=== PATIENT | male | born 1980 | race Caucasian/White ===

== ENCOUNTER 2017-03-23 20:55 | Inpatient (IN) | payer OTHER ==
--- NOTE | 2017-03-23 21:24 | PDOC ---
History of Present Illness - General History Source: Patient Exam Limitations: No Limitations - History of Present Illness Initial Comments: 03/23/17 21:32 The patient is a 36 year old male with a significant PMH of DVT in right lower extremity and pulmonary embolism who presents to the emergency department with RLE pain beginning approximately last week. 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 The patient denies chest pain, shortness of breath, headache and dizziness. Denies fever, nausea, vomit, diarrhea and constipation. Denies dysuria, frequency, urgency and hematuria. Allergies: NKA Past surgical history: None Social history: Current everyday smoker. No reported alcohol or drug use. <Roger Alatorre - Last Filed: 03/23/17 21:32> - General History Source: Patient <Jack Ovalle - Last Filed: 03/23/17 22:32> - General Stated Complaint: PAIN Time Seen by Provider: 03/23/17 21:21 Past History <Roger Alatorre - Last Filed: 03/23/17 21:32> - Surgical History Orthopedic Surgery: Yes (Left elbow) - Psycho/Social/Smoking Cessation Hx Anxiety: No Suicidal Ideation: No Smoking History: Current every day smoker Have you smoked in the past 12 months: Yes Number of Cigarettes Smoked Daily: 20 Hx Alcohol Use: No Drug/Substance Use Hx: Yes Substance Use Type: Marijuana Hx Substance Use Treatment: Yes (IN 2011) <Jack Ovalle - Last Filed: 03/23/17 22:32> - Past Medical History Allergies/Adverse Reactions: Allergies Allergy/AdvReac Type Severity Reaction Status Date / Time No Known Allergies Allergy Verified 03/23/17 21:27 Home Medications: Ambulatory Orders Oxycodone Sr [Oxycontin] 10 mg PO DAILY 01/23/16 Enoxaparin [Lovenox -] 100 mg SQ BID #9 disp.syrin 01/25/16 Review of Systems - Review of Systems Comments:: 03/23/17 21:33 CONSTITUTIONAL: (+) Chills Absent: fever, diaphoresis, generalized weakness, malaise, loss of appetite HEENT: Absent: rhinorrhea, nasal congestion, throat pain, throat swelling, difficulty swallowing, mouth swelling, ear pain, eye pain, visual Changes CARDIOVASCULAR: Absent: chest pain, syncope, palpitations, irregular heart rate, lightheadedness , peripheral edema RESPIRATORY: Absent: cough, shortness of breath, dyspnea with exertion, orthopnea, wheezing, stridor, hemoptysis GASTROINTESTINAL: Absent: abdominal pain, abdominal distension, nausea, vomiting, diarrhea, constipation, melena, hematochezia GENITOURINARY: Absent: dysuria, frequency, urgency, hesitancy, hematuria, flank pain, genital pain MUSCULOSKELETAL: (+) Pain in left foot Absent: arthralgia, joint swelling SKIN: Absent: rash, itching, pallor HEMATOLOGIC/IMMUNOLOGIC: Absent: easy bleeding, easy bruising, lymphadenopathy, frequent infections ENDOCRINE: Absent: unexplained weight gain, unexplained weight loss, heat intolerance, cold intolerance NEUROLOGIC: Absent: headache, focal weakness or paresthesias, dizziness, unsteady gait, seizure, mental status changes, bladder or bowel incontinence PSYCHIATRIC: Absent: anxiety, depression, suicidal or homicidal ideation, hallucinations. <Roger Alatorre - Last Filed: 03/23/17 21:32> *Physical Exam - Vital Signs Last Vital Signs Temp Pulse Resp BP Pulse Ox 95 H 14 122/77 94 L 03/23/17 21:27 03/23/17 21:27 03/23/17 21:27 03/23/17 21:27 - Physical Exam Comments: 03/23/17 21:33 GENERAL: (+) Mild distress. Well developed, well nourished. Awake and alert. HEENT: Normocephalic, atraumatic. PERRLA, EOMI. No conjunctival pallor. Sclera are non- icteric. Moist mucous membranes. Oropharynx is clear. NECK: Supple. Full ROM. No JVD. Carotid pulses 2+ and symmetric, without bruits. No thyromegaly. No lymphadenopathy. CARDIOVASCULAR: Regular rate and rhythm. No murmurs, rubs, or gallops. Distal pulses are 2+ and symmetric. PULMONARY: No evidence of respiratory distress. Lungs clear to auscultation bilaterally. No wheezing, rales or rhonchi. ABDOMINAL: Soft. Non-tender. Non-distended. No rebound or guarding. No organomegaly. Normoactive bowel sounds. MUSCULOSKELETAL: Normal range of motion at all joints. No bony deformities or tenderness. No CVA tenderness. EXTREMITIES: (+) Tenderness in left calf. (+) Erythema and edema in left big toe from end to MTP joint. (+) Pain on active ROM. No cyanosis. No clubbing. SKIN: Warm and dry. Normal capillary refill. No rashes. No jaundice. NEUROLOGICAL: Alert, awake, appropriate. Cranial nerves 2-12 intact. No deficits to light touch and temperature in face, upper extremities and lower extremities. No motor deficits in the in face, upper extremities and lower extremities. Normoreflexic in the upper and lower extremities. Normal speech. Toes are downgoing bilaterally. Gait is normal without ataxia. PSYCHIATRIC: Cooperative. Good eye contact. Appropriate mood and affect. <Roger Alatorre - Last Filed: 03/23/17 21:32> ED Treatment Course - LABORATORY CBC & Chemistry Diagram: 03/23/17 21:49 03/23/17 21:49 <Jack Ovalle - Last Filed: 03/23/17 22:32> Medical Decision Making - Medical Decision Making 03/23/17 22:32 Dr. Ovalle: The scribe's documentation has been prepared under my direction and personally reviewed by me in its entirery. I confirm that the note above accurately reflects all work, treatment, procedures, and medical decision making performed by me. <Jack Ovalle - Last Filed: 03/23/17 22:32> *DC/Admit/Observation/Transfer - Attestations Scribe Attestion: 03/23/17 21:33 Documentation prepared by Roger Alatorre, acting as bio medical technician for Jack Ovalle MD. <Roger Alatorre - Last Filed: 03/23/17 21:32> - Discharge Dispostion Admit: Yes <Jack Ovalle - Last Filed: 03/23/17 22:32> Diagnosis at time of Disposition: Cellulitis of left foot - Discharge Dispostion Condition at time of disposition: Stable
[2017-03-23] MEDS ORDERED: HYDROmorphone HCL CARPU-JECT 1 MG/1 ML DISP.SYRIN IVPUSH ONE (21:27)
[2017-03-23] MEDS ORDERED: LEVOFLOXACIN 500 MG IVPB 100 ML IVPB ONE ×2 (21:27→21:39)
[2017-03-23] MEDS ORDERED: METOCLOPRAMIDE HCL INJECTION 10 MG/2 ML VIAL IVPUSH ONE (21:29)
[2017-03-23] MEDS ORDERED: METOCLOPRAMIDE HCL INJECTION 10 MG/2 ML VIAL ONE (21:38)
[2017-03-23] MEDS ORDERED: HYDROmorphone HCL CARPU-JECT 1 MG/1 ML DISP.SYRIN ONE (21:39)
[2017-03-23 22:02] LABS: BASOPHIL 0.4 % (0-2.0); EOSINOPHIL 0.1 % (0-4.5); MCHC 33.4 g/dl (32.0-35.9); MEAN CELL VOLUME 92.7 fl (80-96); MEAN PLT VOLUME 8.2 fl (7.5-11.1); NEUTROPHILS 81.8 % (42.8-82.8); PLATELET COUNT 289 K/MM3 (134-434); RDW 14.7 % (11.9-15.9); WHITE BLOOD COUNT 15.4 K/mm3 (4.0-10.0)
[2017-03-23 22:22] LABS: INR 1.12 (0.82-1.09); PROTHROMBIN TIME (PATIENT) 12.3 SEC (9.98-11.88)
[2017-03-23 22:37] LABS: ALBUMIN 3.9 g/dl (3.4-5.0); ANION GAP 13 (8-16); BILIRUBIN,TOTAL 0.8 mg/dL (0.2-1.0); CALCIUM 9.1 mg/dL (8.5-10.1); CO2 22 mmol/L (21-32); CREATININE 0.9 mg/dL (0.7-1.3); GLUCOSE,RANDOM 100 mg/dL (74-106); SGOT/AST 17 U/L (15-37); SGPT/ALT 39 U/L (12-78); TOT PROT 7.8 g/dl (6.4-8.2)
[2017-03-23 22:38] LABS: ALK PHOS 85 U/L (45-117)
[2017-03-23] MEDS ORDERED: TETANUS AND DIPHTHERIA TOXOID 0.5 ML DISP.SYRIN IM ONE (23:09)
--- NOTE | 2017-03-23 23:12 | PN ---
Teaching Attending Note Name of Resident: Malathi Gentile ATTENDING PHYSICIAN STATEMENT I saw and evaluated the patient. I reviewed the resident's note and discussed the case with the resident. I agree with the resident's findings and plan as documented. SUBJECTIVE: 36 M with Pmhx of ETOH abuse, DVT RLE and PE in 01/31, etoh abuse, current smoker presetns with RLE pain after stepping on a nail. Notes he has had increasing pain and swelling of L. big toe. Does not note a puncture wound in bottom of feet. States he notes chills and diaphoresis at home, but no fevers. Does note shortness of breath for past few days. No chest pain or pressure. States he went to [facility] on Wednesday and was given Amoxicillin there and was given script for home and lost it. OBJECTIVE: Physical: VS: Vital Signs Period Temp Pulse Resp BP Sys/Guzman Pulse Ox Last 24 Hr 95 14 122/77 94 GEN: NAD, Resting in bed HEENT: NCAT, PERRL, throat without erythema or exudates CARD: RRR S1, S2 RESP: CTAB ABD: BS X4, ntd to palpation EXT: L foot 1st toe with surrounding erythema, no crepitus on palpation, pulses intact. CBCD WBC 15.4 K/mm3 (4.0-10.0) H D 03/23/17 21:49 RBC 5.19 M/mm3 (4.00-5.60) 03/23/17 21:49 Hgb 16.1 GM/dL (11.7-16.9) 03/23/17 21:49 Hct 48.1 % (35.4-49) 03/23/17 21:49 MCV 92.7 fl (80-96) 03/23/17 21:49 MCHC 33.4 g/dl (32.0-35.9) 03/23/17 21:49 RDW 14.7 % (11.9-15.9) 03/23/17 21:49 Plt Count 289 K/MM3 (134-434) D 03/23/17 21:49 MPV 8.2 fl (7.5-11.1) 03/23/17 21:49 CMP Sodium 134 mmol/L (136-145) L 03/23/17 21:49 Potassium 4.0 mmol/L (3.5-5.1) 03/23/17 21:49 Chloride 99 mmol/L (98-107) 03/23/17 21:49 Carbon Dioxide 22 mmol/L (21-32) D 03/23/17 21:49 Anion Gap 13 (8-16) 03/23/17 21:49 BUN 9 mg/dL (7-18) D 03/23/17 21:49 Creatinine 0.9 mg/dL (0.7-1.3) 03/23/17 21:49 Creat Clearance w eGFR > 60 (>60) 03/23/17 21:49 Random Glucose 100 mg/dL (74-106) 03/23/17 21:49 Calcium 9.1 mg/dL (8.5-10.1) 03/23/17 21:49 Total Bilirubin 0.8 mg/dL (0.2-1.0) D 03/23/17 21:49 AST 17 U/L (15-37) D 03/23/17 21:49 ALT 39 U/L (12-78) 03/23/17 21:49 Alkaline Phosphatase 85 U/L (45-117) 03/23/17 21:49 Total Protein 7.8 g/dl (6.4-8.2) D 03/23/17 21:49 Albumin 3.9 g/dl (3.4-5.0) D 03/23/17 21:49 ASSESSMENT AND PLAN: 36 M w pmhx of DVT/PE who presents with Sepsis secondary to RLE wound 1.) Sepsis due to Cellulitis - Stat LA & repeat - IVF - [place] Cx - Xray - S/P Levaquin in ED, c/w Clindamycin 2.) Shortness of Breath - Wells 4.5( Calf tenderness, hx of DVT/PE) - CTA 3.) Asthma - Nebs prn 4.) Smoker - Advise smoking cessation 5.) Etoh abuse - CIWA w . librium - Detox consult Place in Med-Sx
[2017-03-23] MEDS ORDERED: DIPHTH,PERTUSS(ACELL),TET 0.5 ML DISP.SYRIN IM ONE (23:39)
[2017-03-24] MEDS ORDERED: KETOROLAC TROMETHAMINE 15 MG/ML VIAL IVPUSH PRN (00:38)
[2017-03-24] MEDS ORDERED: ALBUTEROL SO4 2.5/IPRATROPIUM 0.5 INH SOL 3 ML VIAL.NEB. NEB PRN (00:41)
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
[2017-03-24] MEDS ORDERED: chlordiazePOXIDE HCL 25 MG CAPSULE PO PRN (01:01)
[2017-03-24] MEDS ORDERED: KETOROLAC TROMETHAMINE 15 MG/ML VIAL ONE (01:35)
[2017-03-24 01:46] LABS: URINE APPEARANCE CLEAR; URINE BILIRUBIN NEGATIVE (NEGATIVE); URINE BLOOD NEGATIVE (NEGATIVE); URINE COLOR LTYELLOW; URINE GLUCOSE (UA) NEGATIVE (NEGATIVE); URINE KETONE TRACE (NEGATIVE); URINE LEUK ESTERASE NEGATIVE (NEGATIVE); URINE NITRITE NEGATIVE (NEGATIVE); URINE PROTEIN NEGATIVE (NEGATIVE); URINE UROBILINOGEN NEGATIVE mg/dL (0.2-1.0)
[2017-03-24] MEDS: HEPARIN NA (PORCINE) 5,000 UNITS/ML 1ML VIAL SQ SCH ×2 (05:56→15:23)
[2017-03-24] MEDS: chlordiazePOXIDE HCL 25 MG CAPSULE PO SCH ×2 (05:56→10:42)
[2017-03-24 06:54] VITALS: BMI 38.5
[2017-03-24 07:30] LABS: MCH 31.5 pg (25.7-33.7); MCHC 33.7 g/dl (32.0-35.9); MEAN CELL VOLUME 93.3 fl (80-96); MEAN PLT VOLUME 8.1 fl (7.5-11.1); PLATELET COUNT 242 K/MM3 (134-434); RDW 14.7 % (11.9-15.9); WHITE BLOOD COUNT 10.3 K/mm3 (4.0-10.0)
[2017-03-24] MEDS ORDERED: AMPICILLIN NA/SULBACTAM NA 3 GM in SODIUM CHLORIDE 100 ML IVPB ONE (12:58)
[2017-03-24] MEDS ORDERED: CLINDAMYCIN 900 MG PREMIX IVPB 50 ML IVPB ONE (12:59)
[2017-03-24 13:33] LABS: ANION GAP 12 (8-16); CO2 23 mmol/L (21-32); GLUCOSE,RANDOM 103 mg/dL (74-106)
[2017-03-24 14:03] VITALS: BP 143/76; PULSE 76; TEMP 98.4
[2017-03-24] MEDS ORDERED: PT OWN MED DRAWER 7, Y5N ONE (14:27)
--- NOTE | 2017-03-24 14:54 | EKG ---
Test Reason : Blood Pressure : / mmHG Vent. Rate : 074 BPM Atrial Rate : 074 BPM P-R Int : 144 ms QRS Dur : 086 ms QT Int : 404 ms P-R-T Axes : 047 034 037 degrees QTc Int : 448 ms NORMAL SINUS RHYTHM NORMAL ECG WHEN COMPARED WITH ECG OF 23-JAN-2016 08:41, NO SIGNIFICANT CHANGE WAS FOUND Confirmed by ERASTO CUELLAR MD ([id number]) on 03/24/2017 2:54:30 PM Referred By: Confirmed By:ERASTO CUELLAR MD
--- NOTE | 2017-03-24 15:52 | DS ---
Physical Exam: SUBJECTIVE: Patient seen and examined OBJECTIVE: Vital Signs Period Temp Pulse Resp BP Sys/Guzman Pulse Ox Last 24 Hr 98.0 F-99 F 66-81 16-18 120-143/60-76 PHYSICAL EXAM GENERAL: The patient is awake, alert, and fully oriented, in no acute distress. HEAD: Normal with no signs of trauma. EYES: PERRL, extraocular movements intact, sclera anicteric, conjunctiva clear. ENT: Ears normal, nares patent, oropharynx clear without exudates, moist mucous membranes. NECK: Trachea midline, full range of motion, supple. LUNGS: Breath sounds equal, clear to auscultation bilaterally, no wheezes, no crackles, no accessory muscle use. HEART: Regular rate and rhythm, S1, S2 without murmur, rub or gallop. ABDOMEN: Soft, nontender, nondistended, normoactive bowel sounds, no guarding, no rebound, no hepatosplenomegaly, no masses. EXTREMITIES: L big toe has area of erythema around it with swelling extending onto dorsum of foot, around 6cm in diameter. Exquisitely tender to palpation, no area of fluctuance. pulses, motor function, and sensory function are intact in L foot. NEUROLOGICAL: Cranial nerves II through XII grossly intact. Normal speech, gait not observed. PSYCH: Normal mood, normal affect. SKIN: Warm, dry, normal turgor, no rashes or lesions noted. LABS Laboratory Results - last 24 hr 03/24/17 03/24/17 03/24/17 00:14 00:14 00:14 WBC RBC Hgb Hct MCV MCH MCHC RDW Plt Count MPV ESR 12 H Sodium Potassium Chloride Carbon Dioxide Anion Gap BUN Creatinine Random Glucose Lactic Acid 1.2 Calcium C-Reactive Protein 6.9 H Urine Color Urine Appearance Urine pH Ur Specific [place] Urine Protein Urine Glucose (UA) Urine Ketones Urine Blood Urine Nitrite Urine Bilirubin Urine Urobilinogen Ur Leukocyte Esterase 03/24/17 03/24/17 03/24/17 00:58 06:15 06:15 WBC 10.3 H D RBC 5.02 Hgb 15.8 Hct 46.9 MCV 93.3 MCH 31.5 MCHC 33.7 RDW 14.7 Plt Count 242 MPV 8.1 ESR Sodium 137 Potassium 3.8 Chloride 102 Carbon Dioxide 23 Anion Gap 12 BUN 12 D Creatinine 1.0 Random Glucose 103 Lactic Acid Calcium 9.0 C-Reactive Protein Urine Color L[place] Urine Appearance Clear Urine pH 6.0 Ur Specific [place] 1.015 Urine Protein Negative Urine Glucose (UA) Negative Urine Ketones Trace H Urine Blood Negative Urine Nitrite Negative Urine Bilirubin Negative Urine Urobilinogen Negative Ur Leukocyte Esterase Negative HOSPITAL COURSE: 36M w/ hx of RLE DVT, PE (2016), EtOH abuse, and asthma presenting with L big toe pain and erythema after stepping on a nail one week ago, found to have leukocytosis, elevated CRP and ESR, admitted for cellulitis. Pt received one dose of levaquinin the ED, one dose of unasyn and clindamycin on the floor, started on a librium taper, pain control with toradol, and duonebs PRN. 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 He was discharged on augmentin and clindamycin and told to return. Date of Admission:03/23/17 Date of Discharge: 03/24/17 Minutes to complete discharge: 36 Discharge Summary Reason For Visit: CELLULITIS OF LEFT FOOT Current Active Problems Cellulitis of left foot (Acute) Condition: Stable - Instructions Diet, Activity, Other Instructions: You need IV antibiotics, better if you stay to avoid worsening infection in foot , sepsis , and worst case foot amputation or take oral pills starting 7 pm . sent to your [facility] pharmacy follow with PCP Disposition: AGAINST MEDICAL ADVICE - Home Medications Comprehensive Discharge Medication List: Ambulatory Orders Amoxicillin/Potassium Clav [Augmentin 875-125 Tablet] 1 each PO Q12H #28 tablet 03/24/17 Clindamycin [Cleocin -] 300 mg PO Q8H #42 capsule 03/24/17 This patient is new to me today: Yes Date on this admission: 03/28/17 Emergency Visit: Yes ED Registration Date: 03/23/17 Care time: The patient presented to the Emergency Department on the above date and was hospitalized for further evaluation of their emergent condition. Critical Care patient: No - Discharge Referral Referred to [facility] Med P.C.: No
--- NOTE | 2017-03-24 18:38 | PN ---
Teaching Attending Note Name of Resident: Anthony Dougherty ATTENDING PHYSICIAN STATEMENT I saw and evaluated the patient. I reviewed the resident's note and discussed the case with the resident. I agree with the resident's findings and plan as documented. SUBJECTIVE: no fever or chills, feels his foot is much better. still has pain . denies SOB OBJECTIVE: NAD , AAox3 CV : RRR Lung s: CTAB ext : no edema on legs . L foot with erythema and edema and TTP over L big toe and adjacent dorsal and solar part . no crepitus was felt . no wounds of discharge . DP 2+ b/l ASSESSMENT AND PLAN: 36 y/o man with h/o RLE DVT, PE, EtOH abuse, Asthma who presneted with L foot painand swelling after stepping on a nail one week prior to presentation 1- cellulitis of L big toe and foot after a penetrating nail injury . slightly improved. received TDaP explained to pt he needed IV abx , and might need MRI to r/o OM if not improved. He understands the risk of worsening infection , sepsis , and worst case scenario foot amputation or even . he still chose to leave AMA gave one dos eof unasyan dn clinda IV before he left prescribed po augmentin and po clinda x 14 days . advised to come back to ER
[2017-03-24 21:33] LABS: URINE MARIJUANA THC POSITIVE ng/ml (CUTOFF=50)
[2017-03-25] MEDS ORDERED: chlordiazePOXIDE HCL 25 MG CAPSULE PO SCH (05:00)
[2017-03-26] MEDS ORDERED: chlordiazePOXIDE 5 MG CAPSULE PO SCH (05:00)
== END 2017-03-24 15:33 | disposition left against medical advice (07) | DRG 383 ==
LOC: JER 20:55 → JERBED 22:32 → J5S 03-24 02:31
PROVIDERS: ADMIT Internal Medicine; ATTEND Internal Medicine
DX: L03.116 Cellulitis of left lower limb (principal); Z86.718 Personal history of other venous thrombosis and embolism; Z86.711 Personal history of pulmonary embolism; F17.210 Nicotine dependence, cigarettes, uncomplicated; J45.909 Unspecified asthma, uncomplicated; F10.10 Alcohol abuse, uncomplicated; R06.02 Shortness of breath; F12.20 Cannabis dependence, uncomplicated; R09.02 Hypoxemia; S90.852A Superficial foreign body, left foot, initial encounter; W45.0XXA Nail entering through skin, initial encounter; D72.828 Other elevated white blood cell count; Z68.38 Body mass index [BMI] 38.0-38.9, adult; F14.10 Cocaine abuse, uncomplicated; F11.10 Opioid abuse, uncomplicated
CPT/HCPCS: 36415; 71275-TC; 73610-TC-LT; 73630-TC-LT; 80048; 80053; 80307; 81003; 83605; 85025; 85027; 85610; 85651; 86140; 86850; 86900; 86901; 87040; 90715; 93005; 93010; 93971-TC; 99281-25; J1644

== ENCOUNTER 2018-10-20 05:12 | Emergency (ER) | payer OTHER ==
[2018-10-20 05:52] VITALS: BP 129/72; PULSE 88; TEMP 98.8; BMI 39.4
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
[2018-10-20] MEDS ORDERED: ACETAMINOPHEN 325 MG TABLET (FP) PO ONE (06:51)
[2018-10-20] MEDS ORDERED: ACETAMINOPHEN 325 MG TABLET (FP) ONE (06:54)
== END 2018-10-20 06:55 | disposition home or self-care (01) ==
LOC: JER 05:12
PROC: 2W3CX1Z Immobilization of Right Lower Arm using Splint (ICD-10-PCS; principal; 2018-10-20)
DX: S62.344D Nondisplaced fracture of base of fourth metacarpal bone, right hand, subsequent encounter for fracture with routine healing (principal); Y04.2XXD Assault by strike against or bumped into by another person, subsequent encounter; Y93.89 Activity, other specified; Y92.89 Other specified places as the place of occurrence of the external cause; Y99.8 Other external cause status; Z59.0 Homelessness
CPT/HCPCS: 73130-TC-RT-FY; 73590-TC-LT-FY; 73590-TC-RT-FY; 99281-25

== ENCOUNTER 2018-10-27 04:13 | Emergency (ER) | payer OTHER ==
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
[2018-10-27 04:36] VITALS: BP 124/86; PULSE 83; TEMP 98.1; BMI 30.1
[2018-10-27] MEDS ORDERED: SODIUM CHLORIDE 1,000 ML IV STA (04:58)
[2018-10-27 05:30] LABS: BASO % 0.4 % (0-2.0); EOS % 3.3 % (0-4.5); HEMATOCRIT 45.2 % (35.4-49); LYMPH % 27.5 % (8-40); MCH 31.6 pg (25.7-33.7); MCHC 33.1 g/dl (32.0-35.9); MEAN CELL VOLUME 95.4 fl (80-96); MEAN PLT VOLUME 8.6 fl (7.5-11.1); NEUT % 59.8 % (42.8-82.8); PLATELET COUNT 223 K/MM3 (134-434); RBC 4.74 M/mm3 (4.00-5.60); RDW 14.6 % (11.9-15.9); WHITE BLOOD COUNT 9.3 K/mm3 (4.0-10.0)
[2018-10-27 05:49] LABS: URINE APPEARANCE CLEAR; URINE BILIRUBIN NEGATIVE (NEGATIVE); URINE COLOR YELLOW; URINE GLUCOSE (UA) NEGATIVE (NEGATIVE); URINE KETONE NEGATIVE (NEGATIVE); URINE LEUK ESTERASE NEGATIVE (NEGATIVE); URINE NITRITE NEGATIVE (NEGATIVE); URINE PROTEIN NEGATIVE (NEGATIVE); URINE UROBILINOGEN 0.2 mg/dL (0.2-1.0)
[2018-10-27 06:36] LABS: ALBUMIN 3.6 g/dl (3.4-5.0); ALK PHOS 91 U/L (45-117); ANION GAP 9 MMOL/L (8-16); BILIRUBIN,TOTAL 0.4 mg/dL (0.2-1); BLOOD UREA NITROGEN 10 mg/dL (7-18); CALCIUM 8.2 mg/dL (8.5-10.1); CHLORIDE 106 mmol/L (98-107); CO2 28 mmol/L (21-32); CREATININE 0.9 mg/dL (0.55-1.3); GLUCOSE,RANDOM 98 mg/dL (74-106); POTASSIUM 3.5 mmol/L (3.5-5.1); SGOT/AST 34 U/L (15-37); SGPT/ALT 59 U/L (13-61); SODIUM 143 mmol/L (136-145); TOT PROT 6.9 g/dl (6.4-8.2)
[2018-10-27 06:36] LABS: COCAINE, UR NEGATIVE ng/ml (CUTOFF=300); METHADONE, UR NEGATIVE ng/ml (CUTOFF=300); OPIATES, URI NEGATIVE ng/ml (CUTOFF=300); URINE AMPHETAMINES NEGATIVE ng/ml (CUTOFF=500); URINE BARBITURATES NEGATIVE ng/ml (CUTOFF=200); URINE BENZODIAZEPINES NEGATIVE ng/ml (CUTOFF=200)
[2018-10-27 07:01] LABS: PHENCYCLIDINE,URINE POSITIVE ng/ml (CUTOFF=25)
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
--- NOTE | 2018-10-27 16:36 | EKG ---
Test Reason : Blood Pressure : / mmHG Vent. Rate : 071 BPM Atrial Rate : 071 BPM P-R Int : 138 ms QRS Dur : 088 ms QT Int : 432 ms P-R-T Axes : 021 028 029 degrees QTc Int : 469 ms NORMAL SINUS RHYTHM NORMAL ECG WHEN COMPARED WITH ECG OF 24-MAR-2017 02:07, NO SIGNIFICANT CHANGE WAS FOUND Confirmed by ROXANE TEJEDA MD ([id number]) on 10/27/2018 4:36:11 PM Referred By: Confirmed By:ROXANE TEJEDA MD
== END 2018-10-27 09:49 | disposition home or self-care (01) ==
LOC: JER 04:13
PROC: 3E0337Z Introduction of Electrolytic and Water Balance Substance into Peripheral Vein, Percutaneous Approach (ICD-10-PCS; principal; 2018-10-27)
DX: R06.00 Dyspnea, unspecified (principal)
CPT/HCPCS: 36415; 80053; 80307; 81003; 85025; 93005; 93010; 93970-TC; 99281-25; J7030

== ENCOUNTER 2018-10-27 11:16 | Inpatient (IN) | payer OTHER ==
[2018-10-27 11:58] VITALS: BMI 38.4
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
[2018-10-27] MEDS ORDERED: NICOTINE POLACRILEX 2 MG GUM BUC PRN (12:36)
[2018-10-27] MEDS ORDERED: MAGNESIUM CITRATE 300 ML BOTTLE PO PRN (12:36)
[2018-10-27] MEDS ORDERED: ACETAMINOPHEN 325 MG TABLET (FP) PO PRN (12:36)
[2018-10-27] MEDS ORDERED: BISMUTH SUBSALICYLATE 262 MG/15 ML BTL PO PRN (12:36)
[2018-10-27] MEDS ORDERED: MENTHOL/PHENOL 1 EACH UD MM PRN (12:36)
[2018-10-27] MEDS ORDERED: MAG HYDROX/AL HYDROX/SIMETH 30 ML UNIT-DOSE CUP PO PRN (12:36)
[2018-10-27] MEDS ORDERED: IBUPROFEN 400 MG TABLET (FP) PO PRN (12:36)
[2018-10-27] MEDS ORDERED: MELATONIN 5 MG TABLETS PO PRN (12:36)
[2018-10-27] MEDS ORDERED: MAGNESIUM HYDROX 2400MG/30ML ORAL SUSPENSION 30 ML CUP PO PRN (12:36)
[2018-10-27] MEDS ORDERED: diazePAM 5 MG TABLET PO PRN (12:36)
[2018-10-27] MEDS: diazePAM 5 MG TABLET PO SCH ×2 (14:07→21:53)
[2018-10-27 17:09] LABS: HEMATOCRIT 46.5 % (35.4-49); HEMOGLOBIN 15.3 GM/dL (11.7-16.9); MCH 31.7 pg (25.7-33.7); MCHC 32.9 g/dl (32.0-35.9); MEAN CELL VOLUME 96.4 fl (80-96); PLATELET COUNT 224 K/MM3 (134-434); RBC 4.82 M/mm3 (4.00-5.60); RDW 14.7 % (11.9-15.9); WHITE BLOOD COUNT 8.2 K/mm3 (4.0-10.0)
[2018-10-27 17:20] LABS: ALBUMIN 3.7 g/dl (3.4-5.0); ALK PHOS 93 U/L (45-117); ANION GAP 6 MMOL/L (8-16); BLOOD UREA NITROGEN 10 mg/dL (7-18); CALCIUM 8.6 mg/dL (8.5-10.1); CHLORIDE 105 mmol/L (98-107); CO2 28 mmol/L (21-32); CREATININE 0.9 mg/dL (0.55-1.3); GLUCOSE,RANDOM 103 mg/dL (74-106); POTASSIUM 4.2 mmol/L (3.5-5.1); SGOT/AST 39 U/L (15-37); SGPT/ALT 64 U/L (13-61); SODIUM 139 mmol/L (136-145); TOT PROT 7.2 g/dl (6.4-8.2)
[2018-10-27] MEDS: ACETAMINOPHEN 325 MG TABLET (FP) PO PRN (20:54)
[2018-10-27] MEDS: SULFAMETHOXAZOLE/TRIMETHOPRIM 800MG/160MG D.S. TABLET PO SCH (21:53)
[2018-10-27] MEDS ORDERED: THIAMINE HCL 100 MG TABLET (FP) PO SCH (22:00)
[2018-10-28] MEDS: ACETAMINOPHEN 325 MG TABLET (FP) PO PRN (04:25)
[2018-10-28] MEDS: diazePAM 5 MG TABLET PO SCH (07:22)
[2018-10-28] MEDS ORDERED: BACITRACIN 0.9 GM PACKET TP SCH (10:00)
[2018-10-28] MEDS ORDERED: PRENATAL VITAMINS W/ FOLIC ACID TABLET (FP) PO SCH (10:00)
[2018-10-28] MEDS ORDERED: diazePAM 5 MG TABLET PO PRN (10:38)
[2018-10-28] MEDS: SULFAMETHOXAZOLE/TRIMETHOPRIM 800MG/160MG D.S. TABLET PO SCH (11:18)
--- NOTE | 2018-10-28 11:48 | PN ---
S CIWA - CIWA Score Nausea/Vomitin Muscle Tremors: 2 Anxiety: 2 Agitation: 2 Paroxysmal Sweats: 1-Minimal Palms Moist Orientation: 0-Oriented Tacttile Disturbances: 1-Very Mild Itch/Numbness Auditory Disturbances: 1-Very Mild Visual Disturbances: 0-None Headache: 2-Mild CIWA-Ar Total Score: 13 BHS Progress Note (SOAP) Subjective: alert,irritable,anxious,interrupted sleep,pain in the left leg,infected left leg with cellulitis Objective: 10/28/18 11:46 Vital Signs Temperature 97.3 F L 10/28/18 09:19 Pulse Rate 94 H 10/28/18 09:19 Respiratory Rate 20 10/28/18 09:19 Blood Pressure 139/93 10/28/18 09:19 O2 Sat by Pulse Oximetry (%) Assessment: 10/28/18 11:46 Laboratory Last Values WBC 8.2 K/mm3 (4.0-10.0) 10/27/18 13:40 RBC 4.82 M/mm3 (4.00-5.60) 10/27/18 13:40 Hgb 15.3 GM/dL (11.7-16.9) 10/27/18 13:40 Hct 46.5 % (35.4-49) 10/27/18 13:40 MCV 96.4 fl (80-96) H 10/27/18 13:40 MCH 31.7 pg (25.7-33.7) 10/27/18 13:40 MCHC 32.9 g/dl (32.0-35.9) 10/27/18 13:40 RDW 14.7 % (11.9-15.9) 10/27/18 13:40 Plt Count 224 K/MM3 (134-434) 10/27/18 13:40 MPV 9.0 fl (7.5-11.1) 10/27/18 13:40 Sodium 139 mmol/L (136-145) 10/27/18 13:15 Potassium 4.2 mmol/L (3.5-5.1) 10/27/18 13:15 Chloride 105 mmol/L (98-107) 10/27/18 13:15 Carbon Dioxide 28 mmol/L (21-32) 10/27/18 13:15 Anion Gap 6 MMOL/L (8-16) L 10/27/18 13:15 BUN 10 mg/dL (7-18) 10/27/18 13:15 Creatinine 0.9 mg/dL (0.55-1.3) 10/27/18 13:15 Creat Clearance w eGFR 95.48 (>60) 10/27/18 13:15 Random Glucose 103 mg/dL (74-106) 10/27/18 13:15 Calcium 8.6 mg/dL (8.5-10.1) 10/27/18 13:15 Total Bilirubin 1.0 mg/dL (0.2-1) 10/27/18 13:15 AST 39 U/L (15-37) H 10/27/18 13:15 ALT 64 U/L (13-61) H 10/27/18 13:15 Alkaline Phosphatase 93 U/L (45-117) 10/27/18 13:15 Total Protein 7.2 g/dl (6.4-8.2) 10/27/18 13:15 Albumin 3.7 g/dl (3.4-5.0) 10/27/18 13:15 10/28/18 11:47 labs pending Plan: withdrawal symptom,continue detox,regimens changed
[2018-10-28 12:01] LABS: RPR NONREACTIVE (NONREACTIVE)
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
--- NOTE | 2018-10-28 13:41 | DS ---
[facility] Detox Discharge Summary Admission Date: 10/27/18 - History Present History: Alcohol Dependence, Cannabis Dependence, Cocaine Dependence, Pcp Dependence - Physical Exam Results Vital Signs: Vital Signs Temperature 97.3 F L 10/28/18 09:19 Pulse Rate 94 H 10/28/18 09:19 Respiratory Rate 20 10/28/18 09:19 Blood Pressure 139/93 10/28/18 09:19 O2 Sat by Pulse Oximetry (%) - Treatment Hospital Course: Discharged Condition Good - Medication Discharge Medications: Ambulatory Orders NK [No Known Home Medication] 10/20/18 - Diagnosis (1) Cannabis dependence Current Visit: Yes Status: Chronic (2) Cocaine dependence Current Visit: Yes Status: Chronic Qualifiers: Substance use status: uncomplicated Qualified Code(s): F14.20 - Cocaine dependence, uncomplicated (3) Phencyclidine use disorder, severe, in controlled environment Current Visit: Yes Status: Chronic (4) DVT (deep venous thrombosis) Current Visit: No Status: Acute Qualifiers: DVT location: lower extremity (5) Facial abrasion Current Visit: Yes Status: Acute Qualifiers: Encounter type: initial encounter Qualified Code(s): S00.81XA - Abrasion of other part of head, initial encounter - AMA Did Patient Leave Against Medical Advice: No (Involuntary discharge)
[2018-10-28] MEDS ORDERED: diazePAM 5 MG TABLET PO SCH ×2 (14:00)
[2018-10-28 14:22] VITALS: BP 131/82; PULSE 59; TEMP 97.7
[2018-10-29] MEDS ORDERED: diazePAM 5 MG TABLET PO ONE (06:00)
[2018-10-29] MEDS ORDERED: diazePAM 5 MG TABLET PO SCH (14:00)
[2018-10-30] MEDS ORDERED: diazePAM 5 MG TABLET PO ONE (06:00)
== END 2018-10-28 12:55 | disposition home or self-care (01) | DRG 774 ==
LOC: YASAS 11:16 → Y6N 13:15
PROVIDERS: ADMIT Surgery; ATTEND Surgery
PROC: HZ2ZZZZ Detoxification Services for Substance Abuse Treatment (ICD-10-PCS; principal; 2018-10-27)
DX: F10.230 Alcohol dependence with withdrawal, uncomplicated (principal); F16.20 Hallucinogen dependence, uncomplicated; F14.20 Cocaine dependence, uncomplicated; F12.20 Cannabis dependence, uncomplicated; F91.8 Other conduct disorders; Z86.718 Personal history of other venous thrombosis and embolism
CPT/HCPCS: 36415; 80053; 80307; 81003; 85025; 85027; 86593; 87389; 93005; 93010; 93970-TC; 99281-25; J7030

== ENCOUNTER → 2018-10-31 | Emergency (ER) | payer OTHER ==
[2018-10-31 18:16] VITALS: BP 138/81; PULSE 94; TEMP 98.3; BMI 39.4
== END | disposition left against medical advice (07) ==
LOC: JERFT 18:07 → JER 18:07
DX: Z53.21 Procedure and treatment not carried out due to patient leaving prior to being seen by health care provider (principal)
CPT/HCPCS: 99281-25